=== PATIENT | female | born 1955 | race African-American/Black ===

== ENCOUNTER 2017-04-16 15:17 | Emergency (ER) | payer MEDICAID, OTHER ==
[~2017-04-16] VITALS: Ht 162.6 cm; Wt 66.0 kg
[~2017-04-16 15:17] MED LIST: AMLO5TAB4; DARU75TA; EMTR1TAB4; INSU3INS7; [UNRECOGNIZED DRUG - OTHER]
[2017-04-16 16:00] VITALS: BP 124/76
== END 2017-04-16 16:06 | disposition left against medical advice (07) ==
LOC: ER 15:17
DX: R55 Syncope and collapse (principal); R53.1 Weakness; E11.9 Type 2 diabetes mellitus without complications; Z88.1 Allergy status to other antibiotic agents; Z88.5 Allergy status to narcotic agent; Z88.6 Allergy status to analgesic agent; Z79.4 Long term (current) use of insulin
CPT/HCPCS: 99283; Z7610

== ENCOUNTER 2017-11-30 10:12 | Emergency (ER) | payer OTHER ==
[~2017-11-30] VITALS: Ht 157.5 cm; Wt 62.0 kg
[2017-11-30 10:55] LABS: CLARITY URINE CLEAR (CLEAR); COLOR URINE DARK YELLOW (YELLOW); KETONES URINE TRACE (NEGATIVE); LEUKOCYTE ESTERASE URINE 1+ (NEGATIVE); NITRITE URINE NEGATIVE (NEGATIVE); OCCULT BLOOD URINE NEGATIVE (NEGATIVE); PROTEIN URINE NEGATIVE (NEGATIVE); SPECIFIC GRAVITY URINE 1.028 (1.005-1.030)
[2017-11-30] MEDS ORDERED: ONDANSETRON HCL 4MG/2ML VIAL IV STA (11:57)
[2017-11-30] MEDS ORDERED: SODIUM CHLORIDE 0.9% 1,000 ML IV ONE (11:57)
[2017-11-30] MEDS ORDERED: CEFTRIAXONE 1 G PREMIX 50 ML IV ONE (12:00)
[2017-11-30] MEDS ORDERED: KETOROLAC 30MG/ML VIAL IV ONE (12:00)
[2017-11-30 12:25] VITALS: BP 119/67
== END 2017-11-30 13:31 | disposition left against medical advice (07) ==
LOC: ER 10:12
DX: N39.0 Urinary tract infection, site not specified (principal); R19.7 Diarrhea, unspecified; E11.9 Type 2 diabetes mellitus without complications; Z85.3 Personal history of malignant neoplasm of breast; Z88.1 Allergy status to other antibiotic agents; Z88.6 Allergy status to analgesic agent; Z88.5 Allergy status to narcotic agent
CPT/HCPCS: 81003; 87086; 99284; J7030; Z7610

== ENCOUNTER 2017-12-24 08:59 | Emergency (ER) | payer OTHER ==
[~2017-12-24] VITALS: Ht 157.5 cm; Wt 62.0 kg
[2017-12-24] MEDS ORDERED: MORPHINE SULFATE 4 MG/ML CPJ (NOT FOR IM USE) IV STA (09:19)
[2017-12-24] MEDS ORDERED: ONDANSETRON HCL 4MG/2ML VIAL IV STA (09:19)
[2017-12-24] MEDS ORDERED: FAMOTIDINE 20MG/2ML VIAL IV STA (09:19)
[2017-12-24] MEDS ORDERED: SODIUM CHLORIDE 0.9% 1,000 ML IV ONE ×2 (09:19→11:54)
[2017-12-24 09:35] LABS: BASOPHILS % 0.5 % (0.0-2.0); EOSINOPHILS % 3.8 % (0.0-5.0); HEMATOCRIT. 41.7 % (36.0-48.0); LYMPHOCYTES % 28.5 % (20.0-50.0); MEAN CORPUSCULAR HEMOGLOBIN 32.3 pg (28.0-32.0); MEAN CORPUSCULAR VOLUME 96.6 fL (81.0-99.0); MEAN PLATELET VOLUME 9.5 fl (7.4-10.4); MONOCYTES % 8.5 % (2.0-8.0); NEUTROPHILS % 58.7 % (40.0-76.0); PLATELET 191 x1000/uL (130-400); RED BLOOD CELL COUNT 4.32 mill/uL (4.2-5.4); RED CELL DISTRIBUTION WIDTH 14.2 % (11.6-14.6)
[2017-12-24 09:42] LABS: CHLORIDE 103 mEq/L (98-107)
[2017-12-24 09:44] LABS: INR 1.1; PARTIAL THROMBOPLASTIN TIME 22.9 sec (23.4-31.0); PROTHROMBIN TIME 11.5 sec (9.4-11.6)
[2017-12-24 09:45] LABS: ETHANOL BLOOD < 10 mg/dL
[2017-12-24 12:54] LABS: CLARITY URINE CLEAR (CLEAR); COLOR URINE YELLOW (YELLOW); KETONES URINE TRACE (NEGATIVE); LEUKOCYTE ESTERASE URINE NEGATIVE (NEGATIVE); NITRITE URINE NEGATIVE (NEGATIVE); OCCULT BLOOD URINE NEGATIVE (NEGATIVE); PH URINE 5.5 (4.5-8.0); PROTEIN URINE NEGATIVE (NEGATIVE); SPECIFIC GRAVITY URINE 1.024 (1.005-1.030)
[2017-12-24 13:21] VITALS: BP 124/55
[2017-12-24 13:29] LABS: *AMPHETAMINES SCREEN URINE NEGATIVE (NEGATIVE); *BARBITURATES SCREEN URINE NEGATIVE (NEGATIVE); *COCAINE SCREEN URINE NEGATIVE (NEGATIVE)
[2017-12-24 13:31] LABS: *BENZODIAZEPINES SCREEN URINE NEGATIVE (NEGATIVE); CANNABINOID URINE SCREEN NEGATIVE (NEGATIVE); METHADONE URINE SCREEN NEGATIVE (NEGATIVE); OPIATES URINE SCREEN PRESUMTIVE POSITIVE (NEGATIVE); PHENCYCLIDINE URINE SCREEN NEGATIVE (NEGATIVE)
== END 2017-12-24 13:29 | disposition home or self-care (01) ==
LOC: ER 09:28
DX: N39.0 Urinary tract infection, site not specified (principal); C50.919 Malignant neoplasm of unspecified site of unspecified female breast; E11.9 Type 2 diabetes mellitus without complications; Z88.1 Allergy status to other antibiotic agents; Z79.899 Other long term (current) drug therapy
CPT/HCPCS: 36415; 71045; 74176; 80053; 80305; 81003; 83690; 85025; 85610; 85730; 87086; 93005; 96361; 96374; 96375; 99285; G0482; J2270; J2405; J3490; J7030; Z7610

== ENCOUNTER 2018-07-23 08:53 | Emergency (ER) | payer OTHER ==
[~2018-07-23] VITALS: Ht 157.5 cm; Wt 63.0 kg
[~2018-07-23 08:53] MED LIST changes: +ASPI-1159 PO; +ATOR20TA65 PO; +BENA10TA10 PO; +DARU1TAB PO; +EPIVIR PO; +ZIAG3 PO
[2018-07-23] MEDS ORDERED: BICT1TAB PO (09:18)
[2018-07-23 11:45] VITALS: BP 138/87
[2018-07-23] MEDS ORDERED: SODIUM CHLORIDE 0.9% 1,000 ML IV ONE (12:31)
[2018-07-23 12:51] LABS: BASOPHILS % 0.7 % (0.0-2.0); EOSINOPHILS % 1.6 % (0.0-5.0); HEMATOCRIT. 45.2 % (36.0-48.0); HEMOGLOBIN. 15.2 g/dL (12.0-16.0); LYMPHOCYTES % 25.3 % (20.0-50.0); MEAN CORPUSCULAR HEMOGLOBIN 32.3 pg (28.0-32.0); MEAN CORPUSCULAR VOLUME 96.1 fL (81.0-99.0); MEAN PLATELET VOLUME 10.9 fl (7.4-10.4); MONOCYTES % 8.1 % (2.0-8.0); NEUTROPHILS % 64.3 % (40.0-76.0); PLATELET 160 x1000/uL (130-400); RED BLOOD CELL COUNT 4.71 mill/uL (4.2-5.4); RED CELL DISTRIBUTION WIDTH 13.5 % (11.6-14.6)
[2018-07-23 12:59] LABS: CHLORIDE 98 mEq/L (98-107)
[2018-07-23 13:12] LABS: CLARITY URINE CLEAR (CLEAR); COLOR URINE YELLOW (YELLOW); KETONES URINE NEGATIVE (NEGATIVE); LEUKOCYTE ESTERASE URINE NEGATIVE (NEGATIVE); NITRITE URINE NEGATIVE (NEGATIVE); OCCULT BLOOD URINE NEGATIVE (NEGATIVE); PROTEIN URINE NEGATIVE (NEGATIVE); SPECIFIC GRAVITY URINE 1.031 (1.005-1.030)
[2018-07-23] MEDS ORDERED: SODIUM CHLORIDE 0.9% 1,000 ML IV NR (15:22)
== END 2018-07-23 14:12 | disposition left against medical advice (07) ==
LOC: ER 13:32
DX: E11.65 Type 2 diabetes mellitus with hyperglycemia (principal); R53.1 Weakness; B37.49 Other urogenital candidiasis; R50.9 Fever, unspecified; R11.0 Nausea; R42 Dizziness and giddiness; I10 Essential (primary) hypertension; Z90.12 Acquired absence of left breast and nipple; Z90.49 Acquired absence of other specified parts of digestive tract; Z79.4 Long term (current) use of insulin; Z79.82 Long term (current) use of aspirin; Z79.899 Other long term (current) drug therapy; Z88.3 Allergy status to other anti-infective agents
CPT/HCPCS: 36415; 71045; 80053; 81003; 82962; 84484; 85025; 93005; 99284; J7030

== ENCOUNTER 2019-02-10 14:25 | Emergency (ER) | payer OTHER ==
[~2019-02-10] VITALS: Ht 157.5 cm; Wt 65.0 kg
[~2019-02-10 14:25] MED LIST changes: -ASPI-1159 PO; +ASPI-1393 PO; +BICT1TAB PO; -EMTR1TAB4; -[UNRECOGNIZED DRUG - OTHER]
[2019-02-10 17:20] VITALS: BP 133/93
[2019-02-10 19:03] LABS: CHLORIDE 108 mEq/L (98-107)
[2019-02-10 19:06] LABS: BASOPHILS % 0.5 % (0.0-2.0); EOSINOPHILS % 0.1 % (0.0-5.0); HEMATOCRIT. 42.3 % (36.0-48.0); HEMOGLOBIN. 13.9 g/dL (12.0-16.0); MEAN CORPUSCULAR HEMOGLOBIN 30.9 pg (28.0-32.0); MEAN PLATELET VOLUME 9.3 fl (7.4-10.4); MONOCYTES % 6.7 % (2.0-8.0); NEUTROPHILS % 82.7 % (40.0-76.0); PLATELET 176 x1000/uL (130-400)
== END 2019-02-10 20:22 | disposition home or self-care (01) ==
LOC: ER 15:00
DX: G57.93 Unspecified mononeuropathy of bilateral lower limbs (principal); E11.9 Type 2 diabetes mellitus without complications; I10 Essential (primary) hypertension; Z85.9 Personal history of malignant neoplasm, unspecified; Z90.49 Acquired absence of other specified parts of digestive tract; Z90.10 Acquired absence of unspecified breast and nipple; Z88.8 Allergy status to other drugs, medicaments and biological substances; Z79.4 Long term (current) use of insulin; Z79.82 Long term (current) use of aspirin
CPT/HCPCS: 36415; 83880; 84484; 93005; 93970; 99284

== ENCOUNTER 2019-09-02 14:31 | Emergency (ER) | payer OTHER ==
[~2019-09-02] VITALS: Ht 167.6 cm; Wt 73.0 kg
[~2019-09-02 14:31] MED LIST changes: -ASPI-1393 PO; +ASPI-1497 PO; -BENA10TA10 PO; +BENA10TA74 PO
[2019-09-02 16:43] LABS: BASOPHILS % 0.8 % (0.0-2.0); EOSINOPHILS % 0.8 % (0.0-5.0); HEMATOCRIT. 45.7 % (36.0-48.0); MEAN CORPUSCULAR HEMOGLOBIN 31.2 pg (28.0-32.0); MEAN CORPUSCULAR VOLUME 94.7 fL (81.0-99.0); MEAN PLATELET VOLUME 10.7 fl (7.4-10.4); MONOCYTES % 8.9 % (2.0-8.0); NEUTROPHILS % 73.5 % (40.0-76.0); PLATELET 152 x1000/uL (130-400); RED BLOOD CELL COUNT 4.82 mill/uL (4.2-5.4); RED CELL DISTRIBUTION WIDTH 13.6 % (11.6-14.6)
[2019-09-02 16:47] LABS: CHLORIDE 104 mEq/L (98-107)
[2019-09-02 16:49] LABS: INR 1.1; PROTHROMBIN TIME 10.8 sec (9.6-11.0)
[2019-09-02 16:51] LABS: ETHANOL BLOOD < 10 mg/dL
[2019-09-02 16:54] LABS: LDL CHOLESTEROL 144 mg/dL (5-100)
[2019-09-02 16:56] LABS: CREATINE KINASE 71 IU/L (26-192)
[2019-09-02] MEDS ORDERED: SODIUM CHLORIDE 0.9% 1,000 ML IV ONE (17:14)
[2019-09-02] MEDS ORDERED: ASPIRIN 81MG TABLET PO ONE (17:15)
[2019-09-02 18:24] LABS: CLARITY URINE CLEAR (CLEAR); COLOR URINE YELLOW (YELLOW); KETONES URINE NEGATIVE (NEGATIVE); LEUKOCYTE ESTERASE URINE 1+ (NEGATIVE); NITRITE URINE NEGATIVE (NEGATIVE); OCCULT BLOOD URINE NEGATIVE (NEGATIVE); PROTEIN URINE NEGATIVE (NEGATIVE); SPECIFIC GRAVITY URINE 1.022 (1.005-1.030); UROBILINOGEN URINE 0.2 E.U./dL (0.2-1.0)
[2019-09-02 18:40] LABS: *AMPHETAMINES SCREEN URINE NEGATIVE (NEGATIVE); *BARBITURATES SCREEN URINE NEGATIVE (NEGATIVE); *BENZODIAZEPINES SCREEN URINE NEGATIVE (NEGATIVE); *COCAINE SCREEN URINE NEGATIVE (NEGATIVE); OPIATES URINE SCREEN NEGATIVE (NEGATIVE)
[2019-09-02 18:41] LABS: CANNABINOID URINE SCREEN NEGATIVE (NEGATIVE); PHENCYCLIDINE URINE SCREEN NEGATIVE (NEGATIVE)
[2019-09-02 18:42] LABS: METHADONE URINE SCREEN NEGATIVE (NEGATIVE)
[2019-09-02 19:32] VITALS: BP 142/83
== END 2019-09-02 19:13 | disposition short-term general hospital (02) ==
LOC: ER 15:13
DX: G45.9 Transient cerebral ischemic attack, unspecified (principal); I63.9 Cerebral infarction, unspecified; B20 Human immunodeficiency virus [HIV] disease; R53.1 Weakness; Z90.49 Acquired absence of other specified parts of digestive tract; Z90.10 Acquired absence of unspecified breast and nipple
CPT/HCPCS: 36415; 70450; 71045; 80053; 80305; 80320; 81003; 82550; 82962; 83690; 83721; 83880; 84484; 85025; 85610; 93005; 99291; J7030; Z7610; G0480

== ENCOUNTER 2020-11-01 23:10 | Emergency (ER) | payer OTHER ==
[~2020-11-01] VITALS: Ht 157.5 cm; Wt 70.0 kg
[2020-11-02] MEDS ORDERED: ACETAMINOPHEN 325MG TABLET PO ONE
[2020-11-02 00:42] VITALS: BP 145/72
[2020-11-02] MEDS ORDERED: ACET-2708 MT (00:48)
== END 2020-11-02 01:39 | disposition home or self-care (01) ==
LOC: ER 23:10
DX: S90.31XA Contusion of right foot, initial encounter (principal); S90.01XA Contusion of right ankle, initial encounter; W50.2XXA Accidental twist by another person, initial encounter; Y93.89 Activity, other specified; Y92.89 Other specified places as the place of occurrence of the external cause; Y99.8 Other external cause status; Z85.6 Personal history of leukemia; Z90.10 Acquired absence of unspecified breast and nipple; Z79.4 Long term (current) use of insulin; Z79.82 Long term (current) use of aspirin; Z79.899 Other long term (current) drug therapy
CPT/HCPCS: 29515; 73610; 73630; 99284

== ENCOUNTER 2021-08-30 20:53 | Emergency (ER) | payer MEDICAID, OTHER ==
[~2021-08-30 20:53] MED LIST changes: +ACET-2708 MT
== END 2021-08-30 21:02 | disposition left against medical advice (07) ==
LOC: ER 20:53
DX: Z53.21 Procedure and treatment not carried out due to patient leaving prior to being seen by health care provider (principal)